=== PATIENT | male | born 2000 | race Two or more races ===

== ENCOUNTER 2018-04-25 12:08 | Emergency (ER) | payer OTHER ==
[2018-04-25] MEDS ORDERED: IBUPROFEN 600 MG TAB PO ONE (12:14)
[2018-04-25] MEDS ORDERED: LIDOCAINE 4%/MENTHOL 1% PATCH TD ONE (12:14)
[2018-04-25 12:18] VITALS: BP 139/69
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
[2018-04-25] MEDS ORDERED: PATCH REMOVAL 1 EA PATCH TD SCH (21:00)
== END 2018-04-25 13:01 | disposition home or self-care (01) ==
DX: S20.211A Contusion of right front wall of thorax, initial encounter (principal); V13.4XXA Pedal cycle driver injured in collision with car, pick-up truck or van in traffic accident, initial encounter; Y92.410 Unspecified street and highway as the place of occurrence of the external cause